=== PATIENT | female | born 1960 | race Two or more races ===

== ENCOUNTER 2020-06-08 09:24 | Outpatient (REF) | payer OTHER, SELFPAY | END 2020-06-08 09:25 | disposition home or self-care (01) | LOC: HO.LAB 09:24 | PROVIDERS: Visit Provider Internal Medicine | DX: Z20.828 Contact with and (suspected) exposure to other viral communicable diseases (principal) | CPT/HCPCS: C9803; U0003 ==

== ENCOUNTER 2024-09-01 10:00 | Emergency (ER) | payer OTHER, SELFPAY ==
--- NOTE | ~2024-09-01 | XR_ITS ---
EXAMINATION: XR LUMBOSACRAL SPINE CLINICAL INFORMATION: low back pain s/p fall COMPARISON: None. TECHNIQUE: Three views of the lumbosacral spine. FINDINGS: There is mild straightening of lumbar lordosis. The vertebral heights, alignment and disc heights are normal. No visible acute fracture, dislocation or lytic process seen. The soft tissues are normal. SI joints are symmetric and normal. Partially visualized hip joints appear normal. No fracture, lytic or sclerotic process seen. There is mild acute kyphotic deformity sacrococcygeal junction likely old trauma. Mild ventral spondylosis noted throughout lumbar spine. XR/XR lumbar spine 2-3V IMPRESSION: No acute fracture, dislocation subluxation. Mild ventral spondylosis throughout lumbar spine. Mild kyphotic deformity sacrococcygeal junction likely old trauma. Electronically signed by: Max Garrison MD 09/01/2024 10:54 AM FARIDA
--- NOTE | ~2024-09-01 | XR_ITS ---
EXAMINATION: XR KNEE, RIGHT CLINICAL INFORMATION: fall onto knees COMPARISON: None available. TECHNIQUE: 4 views FINDINGS: Mild reduction in medial and patellofemoral compartment joint space with periarticular spurring. No loose bodies or bony erosive changes. There is mild suprapatellar joint effusion. There is anterior superior patellar spurring. No acute fracture of the dislocation. No lytic or sclerotic process. XR/XR knee RT 4V IMPRESSION: Degenerative arthritic changes medial and patellofemoral compartment with mild suprapatellar joint effusion. No acute fracture or dislocation seen Electronically signed by: Max Garrison MD 09/01/2024 10:56 AM EST
--- NOTE | ~2024-09-01 | XR_ITS ---
EXAMINATION: XR BILATERAL HIPS WITH AP PELVIS CLINICAL INFORMATION: hip pain s/p fall COMPARISON: None available. TECHNIQUE: AP view of the pelvis and 2 views views of each hip were obtained. FINDINGS: AP pelvis: There is normal symmetry of bilateral hip joints and SI joints. No bony abnormality seen involving the pelvic bones. There is loss of joint space and spurring in these pubic symphysis. Right hip: The right hip joint space is preserved. No bony erosive changes are periarticular spurring. No acute fracture dislocation. The soft tissues are normal. Left hip: The left hip joint spaces maintain normal. No visible acute fracture or dislocation. No bony erosive changes. The soft tissues are normal. XR/XR hip BI w PEL1V IMPRESSION: Unremarkable AP pelvis and bilateral hip exam. Electronically signed by: Max Garrison MD 09/01/2024 10:58 AM FARIDA
--- NOTE | ~2024-09-01 | XR_ITS ---
EXAMINATION: XR KNEE, LEFT CLINICAL INFORMATION: fall onto knees COMPARISON: None available. TECHNIQUE: Four views of the left knee. FINDINGS: Minimal reduction in medial and patellofemoral compartment joint space with periarticular spurring. No loose bodies, joint effusion or bony erosive changes. No acute fracture or dislocation. Mild intercondylar eminence spurring seen. Minimal suprapatellar joint effusion. The soft tissues are normal. XR/XR knee LT 4V IMPRESSION: Mild degenerative changes patellofemoral and medial compartment without any visible acute fracture, dislocation. Minimal suprapatellar joint effusion. Electronically signed by: Max Garrison MD 09/01/2024 10:55 AM EST
[2024-09-01 10:12] VITALS: BP 114/73; PULSE 91; RESP 100; TEMP 36.6; O2SAT 96; BMI 40.7
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
[2024-09-01 13:46] VITALS: BP 114/73; PULSE 91; RESP 100; TEMP 36.6; O2SAT 96
--- OUTSIDE RECORDS SUMMARY | 2024-09-01 16:14 | XMS_ITS | Clinical Summary ---
Author Organization [address] [facility] Address [address] [place] [address] Phone Care Team Providers Care Dot Etcher Apprentice Name Role Phone Jacki Lucero MD Primary Care Provider [phone] Allergies No known active allergies Medications montelukast (SINGULAIR) 10 mg tablet Take 1 tablet (10 mg total) by mouth at bedtime. 9 Active sacubitriL-vals ginger (Entresto) 49-51 mg per tablet Take 1 tablet by mouth 2 (two) times a day. 4 Active rivaroxaban (Xarelto) 20 mg tablet Take 1 tablet (20 mg total) by mouth. 2 Active metoprolol succinate (TOPROL-XL) 50 mg 24 hr tablet Take 1.5 tablets (75 mg total) by mouth. 9 Active acetaminophen (TYLENOL) 500 mg tablet Take 2 tablets (1,000 mg total) by mouth every 8 (eight) hours if needed for mild pain. Active albuterol 2.5 mg /3 mL (0.083 %) nebulizer solution Take 3 mL (2.5 mg total) by nebulization every 4 (four) hours if needed for wheezing. Active atorvastatin (LIPITOR) 20 mg tablet Take 1 tablet (20 mg total) by mouth at bedtime. Active docusate sodium (COLACE) 100 mg capsule Take 1 capsule (100 mg total) by mouth 2 (two) times a day. Active diclofenac (VOLTAREN) 1 % topical gel Apply topically 4 (four) times a day. Active fluticasone propionate (FLONASE) 50 mcg/actuation nasal spray Administer 1 spray into each nostril 1 (one) time each day. Shake gently. Before first use, prime pump. After use, clean tip and replace cap. Active ipratropium (ATROVENT) 21 mcg (0.03 %) nasal spray Administer 2 sprays into each nostril every 12 (twelve) hours. Active omeprazole (PriLOSEC) [address] capsule Take 1 capsule (40 mg total) by mouth 1 (one) time each day. Do not crush or chew. Active sertraline (ZOLOFT) 100 mg tablet Take 1 tablet (100 mg total) by mouth 1 (one) time each day. Active tiZANidine (ZANAFLEX) 2 mg tablet Take 1 tablet (2 mg total) by mouth 2 (two) times a day if needed for muscle spasms. Active dulaglutide (Trulicity) 0.75 mg/0.5 mL pen injector injection Inject 0.5 mL (0.75 mg total) under the skin every 7 (seven) days. Active albuterol HFA (PROAIR HFA ; PROVENTIL HFA ; VENTOLIN HFA) 90 mcg/actuation inhaler Inhale 2 puffs by mouth 4 (four) times a day if needed for wheezing. Active cholecalciferol (VITAMIN D-3) 25 mcg (1,000 unit) tablet Take 1 tablet (1,000 Units total) by mouth 1 (one) time each day. Active Encounters Date Type Department Care Team Description 07/28/2024 Telephone Gastroenterology - [place] [facility] [address] [facility] [address] [place] [address] Jazmin Gutiérrez MD Special Procedure from Last 3 Months Surgical History Surgery Date Site/Laterality Comments HYSTERECTOMY 2012 PROCEDURE: HISTORICAL TOTAL HYSTERECTOMY WITH BSO COLONOSCOPY 2012 PROCEDURE: IN COLONOSCOPY FLX DX W/COLLJ SPEC WHEN PFRMD; COMMENT: diverticulosis SHOULDER SURGERY 12/2012 PROCEDURE: HISTORICAL SHOULDER SURGERY; COMMENT: left rotator cuff repair OTHER SURGICAL HISTORY 04/14 PROCEDURE: MAMMOGRAM Medical History Medical History Date Comments Diverticulosis of colon (wit hout mention of hemorrhage) 11/11/2012 DX:Diverticulosis of colon ( without mention of hemorrhage); COMMENT: Incidental finding at colonoscopy 11/11/2012. Hyperkeratosis of sole 02/17/2014 DX:Hyperk eratosis of sole Varicose veins 02/17/2014 DX:Varicose vein s Plantar fasciitis of left foot 02/17/2014 D X:Plantar fasciitis of left foot Peripheral neuropathy, idiopathic 02/17/2014 DX:Peripheral neuropathy, idiopathic Atrial fibrillation (CMS/HCC) 09/13/2015 DX :Atrial fibrillation (HCC) Family History Medical History Relation Name Comments Heart attack Father Other: old age Mother 83 Other: unknown cancer Other second sister Asthma Sister 1 Breast cancer Sister 1 Relation Name Status Comments Brother Alive Father Mother Alive Other Sister 1 Sister 2 52 Alive depression in 6 sisters Sister 3 51 Alive htn, diabetes Social History Tobacco Use Types Packs/Day Years Used Date Smoking Tobacco: Never Smokeless Tobacco: Never Alcohol Use Standard Drinks/Week Comments No 0 (1 standard drink = 0.6 oz pur e alcohol) Comments Unknown Sex and Gender Information Value Date Recorded Sex Assigned at Not on file Legal Sex Female 2:12 AM EST Gender Identity Not on file Sexual Orientation Not on file Obstetrics History Last Filed Vital Signs Vital Sign Reading Time Taken Comments Blood Pressure 110/68 08/29/2023 10:50 AM EST Sitting L Arm Pulse 63 08/29/2023 10:50 AM EST Temperature - - Respiratory Rate - - Oxygen Saturation - - Inhaled Oxygen Concentration - - Weight 108 kg (238 lb 9.6 oz) 10:50 AM EST Height 160 cm (5' 3 ) 08/29/2023 10:50 AM EST Body Mass Index 42.27 08/29/2023 10:50 AM EST Plan of Treatment Upcoming Encounters Date Type Department Care Team (Late st Contact Info) Description 11/23/2024 1:30 PM EDT Appointment [facility] [address] [place] [id number] Mario Basurto DO [address] [address] Health Maintenance Due Date Last Done Comments Zoster Vaccines (1 of 2) 2010 Pneumococcal Vaccine: 50+ Years (2 of 2 - PCV) 03/24/2015 03/24/2014 Pneumococcal Vaccine: Pediatrics (0 to 5 Years) and At-Risk Patients (6 to 64 Years) (2 of 2 - PCV) 03/24/2015 03/24/2014 Breast Cancer Screening 04/13/2020 04/13/20 18, 04/07/2017 RSV Immunization Patients 60 + Years Old (1 - Risk 60-74 years 1-dose series) 2020 Cholesterol Screening (Lipid Panel) 06/08/2022 Depression Screening 06/08/2022 HIV Screening 06/08/2022 Hepatitis C Screening 06/08/2022 Social Influencers of Health Screening 06/08/2022 Hypertension/CHF/CAD Annual BMP Blood Test 06/09/2022 DTaP,Tdap,and Td Vaccines (2 - Td or Tdap) 11/06/2022 11/06/2012 Colorectal Cancer Screening: Colonoscopy 11/11/2022 11/11/2012 COVID-19 Vaccine ( - 2023-2 5 season) 2024 Influenza Vaccine (#1) 2024 4, 09/16/2013, 06/10/2013 HIB Vaccines Aged Out No longer eligi ble based on patient's age to complete this topic HPV Vaccines Aged Out No longer eligi ble based on patient's age to complete this topic Hepatitis A Vaccines Aged Out No long er eligible based on patient's age to complete this topic Hepatitis B Vaccines Aged Out No long er eligible based on patient's age to complete this topic IPV Vaccines Aged Out No longer eligi ble based on patient's age to complete this topic MMR Vaccines Aged Out No longer eligi ble based on patient's age to complete this topic Meningococcal ACWY Vaccine Aged Out N o longer eligible based on patient's age to complete this topic Meningococcal B Vacine Aged Out No lo nger eligible based on patient's age to complete this topic RSV Immunization Patients Under 20 months Aged Out No longer eligible b ased on patient's age to complete this topic Varicella Vaccines Aged Out No longer eligible based on patient's age to complete this topic Procedures Procedure Name Priority Date/Time Associated Diagnosis Comments SCR MAMMO BI INCL CAD Routine 04/13/2018 8:09 AM EDT Encounter for screening mammogram for malignant neoplasm of breast from Last 3 Months or Most Recently Relevant to Health Maintenance Results * SCR MAMMO BI INCL CAD (04/13/2018 8:09 AM EDT) Anatomical Region Laterality Modality Radiographic Radha ging 04/07/2017 8:20 AM EDT Narrative 04/13/2018 12:10 PM EDT This is a summary report. The complete report is available in the patient's medical record. If you cannot access the medical record, please contact the sending organization for a detailed fax or copy. Full field digital screening mammography, reviewed with CAD and compared to previous. ??The breasts are composed of fatty and fibroglandular tissue. ??Bilateral patchy and nodular parenchymal pattern is similar compared to prior studies. No suspicious mass, architectural distortion or suspicious calcifications are identified. IMPRESSION: : No mammographic evidence of malignancy. BIRADS 1-Negative; N. 5 year breast cancer risk assessment 1.8 % Lifetime breast cancer risk assessment 11.2 % Breast cancer risk category Low (<15%) Procedure Note Chrissy Juárez, DO - 06/18/2022 This is a summary report. The complete report is available in thepatient's medical record. If you cannot access the medical record, pleasecontact the sending organization for a detailed fax or copy. Full field digital screening mammography, reviewed with CAD and comparedto previous. The breasts are composed of fatty and fibroglandular tissue.Bilateral patchy and nodular parenchymal pattern is similar compared toprior studies. No suspicious mass, architectural distortion or suspiciouscalcifications are identified. IMPRESSION: : No mammographic evidence of malignancy. BIRADS 1-Negative; N. 5 year breast cancer risk assessment 1.8 % Lifetime breast cancer risk assessment 11.2 % Breast cancer risk category Low (<15%) Guille Simon MD IMG XR PROCEDURES Final Result from Last 3 Months or Most Recently Relevant to Health Maintenance Insurance [facility] [address] [place] [address] Care Teams Dot Etcher Apprentice Relationship Specialty Start Date End Date Jacki Lucero MD [address] [place] [address] PCP - General Internal Medicine 09/28/15
== END 2024-09-01 13:47 | disposition home or self-care (01) ==
PROVIDERS: Emergency Provider Emergency Medicine; PCP Internal Medicine
DX: S39.012A Strain of muscle, fascia and tendon of lower back, initial encounter (principal); M25.461 Effusion, right knee; M25.561 Pain in right knee; M25.562 Pain in left knee; I48.91 Unspecified atrial fibrillation; Z79.01 Long term (current) use of anticoagulants; W18.30XA Fall on same level, unspecified, initial encounter; Y93.9 Activity, unspecified; Y92.89 Other specified places as the place of occurrence of the external cause; Y99.9 Unspecified external cause status
CPT/HCPCS: 72100; 73521; 73564; 99282; 99283

== ENCOUNTER → 2024-09-01 10:20 | Outpatient (BNV) | payer OTHER, SELFPAY | PROVIDERS: PCP Internal Medicine; Visit Provider Radiology Diagnostic Radiology | DX: M25.462 Effusion, left knee (principal); M25.461 Effusion, right knee; M17.0 Bilateral primary osteoarthritis of knee; M25.551 Pain in right hip; M25.552 Pain in left hip; M40.205 Unspecified kyphosis, thoracolumbar region; M47.816 Spondylosis without myelopathy or radiculopathy, lumbar region; W18.09XA Striking against other object with subsequent fall, initial encounter | CPT/HCPCS: 72100; 73521; 73564 ==